=== PATIENT | male | born 1985 ===

== ENCOUNTER 2022-11-12 05:37 | Day surgery (SDC) | payer OTHER ==
[2022-11-09 11:06] VITALS: BMI 26.4
[2022-11-12] MEDS ORDERED: BUPIVACAINE HCL/PF 0.5% (5MG/ML) 10 ML VIAL ONE (11:27)
[2022-11-12] MEDS ORDERED: PROPOFOL 60 ML ONE (11:52)
[2022-11-12] MEDS ORDERED: MIDAZOLAM HCL 2 MG/2 ML SINGLE DOSE VIAL ONE (11:53)
[2022-11-12] MEDS ORDERED: ceFAZolin SODIUM 1 GM VIAL IVPB ONE (12:02)
[2022-11-12] MEDS ORDERED: BUPIVACAINE HCL/PF 0.5% (5 MG/ML) 30 ML VIAL IJ ONE (12:15)
[2022-11-12] MEDS ORDERED: oxyCODONE HCL 5 MG TABLET PO PRN (12:59)
[2022-11-12] MEDS ORDERED: ONDANSETRON 4 MG/2 ML VIAL IVPUSH PRN (12:59)
[2022-11-12 14:36] VITALS: BP 130/74; RESP 18
[2022-11-12 16:00] VITALS: PULSE 53; TEMP 98.2
== END 2022-11-12 15:20 | disposition home or self-care (01) ==
LOC: JASU-SURG 05:37
PROVIDERS: ATTEND Urology
PROC: 0VBQ0ZZ Excision of Bilateral Vas Deferens, Open Approach (ICD-10-PCS; principal; 2022-11-12 11:00)
DX: Z30.2 Encounter for sterilization (principal)
CPT/HCPCS: 88302-TC; 94760